=== PATIENT | female | born 1945 | race Caucasian/White ===

== ENCOUNTER → 2016-07-27 | Outpatient (CLI) | payer MEDICARE ==
[~2016-07-27] MED LIST: ALBU8.5H3 INH; ASPI-515 PO; ATOR20TA9 PO; CARV12.52 PO; CEPH-368 PO; DOXY100T9 PO; GLIP5TAB10 PO; HYDR25TA6 PO; LEVO50TA PO; LOSA50TA6 PO; METF500T4 PO; SPIR25TA3 PO
== END | disposition home or self-care (01) ==
LOC: CVU 09:13
PROVIDERS: ATTEND Nurse Practitioner Family
DX: I08.3 Combined rheumatic disorders of mitral, aortic and tricuspid valves (principal); I37.1 Nonrheumatic pulmonary valve insufficiency; Z95.0 Presence of cardiac pacemaker; E11.9 Type 2 diabetes mellitus without complications
CPT/HCPCS: 93306

== ENCOUNTER 2020-05-12 10:27 | Outpatient (CLI) | payer MEDICARE ==
[~2020-05-12 10:27] MED LIST changes: -ALBU8.5H3 INH; +ALBU8.5H8 INH; -ASPI-515 PO; +ASPI-963 PO; +ATOR20TA37 PO; -ATOR20TA9 PO; +DOXY-162 PO; -DOXY100T9 PO; +LOSA50TA14 PO; -LOSA50TA6 PO; +METF500T17 PO; -METF500T4 PO; -SPIR25TA3 PO; +SPIR25TA5 PO
== END 2020-05-12 23:59 | disposition home or self-care (01) ==
LOC: CFH 10:27
PROVIDERS: ATTEND Internal Medicine Cardiovascular Disease
DX: I08.3 Combined rheumatic disorders of mitral, aortic and tricuspid valves (principal); I42.9 Cardiomyopathy, unspecified
CPT/HCPCS: 93306

== ENCOUNTER 2020-06-21 10:35 | Day surgery (SDC) | payer MEDICARE ==
[2020-06-21] MEDS ORDERED: SODIUM CHLORIDE 0.9% 1,000 ML IV SCH (11:00)
[2020-06-21] MEDS ORDERED: IRON (11:14)
[2020-06-21] MEDS ORDERED: INSU100I34 SQ (11:16)
[2020-06-21 11:34] LABS: BASOPHILS % (AUTO) 1 % (0-1); EOSINOPHILS % (AUTO) 2 % (1-7); LYMPHOCYTES % (AUTO) 18 % (22-44); MEAN CORPUSCULAR HEMOGLOBIN 29.8 pg (27.0-34.8); MEAN CORPUSCULAR HGB CONC 33.4 g/dL (32.4-35.8); MEAN PLATELET VOLUME 7.6 fL (7.4-10.4); MONOCYTES % (AUTO) 8 % (2-9); NEUTROPHILS % (AUTO) 71 % (42-75); PLATELET COUNT 140 x10^3/uL (130-400); RED BLOOD COUNT 3.24 x10^6/uL (3.82-5.3); RED CELL DISTRIBUTION WIDTH 13.7 % (9.6-15.2)
[2020-06-21 11:40] LABS: MD NO
[2020-06-21 11:44] LABS: CALCIUM 9.1 mg/dL (8.5-10.1); CHLORIDE 113 mmol/L (98-107); CREATININE 1.88 mg/dL (0.55-1.02)
[2020-06-21] MEDS ORDERED: CEFAZOLIN PMX 1GM/50ML 50 ML ONE ×2 (11:44→13:20)
[2020-06-21] MEDS ORDERED: MIDAZOLAM 1 MG/ML, 5ML ONE (11:44)
[2020-06-21] MEDS ORDERED: LIDOCAINE 1%, 20ML ONE ×2 (11:44→13:32)
[2020-06-21] MEDS ORDERED: FENTANYL PF 100 MCG/2ML ONE (11:44)
[2020-06-21] MEDS ORDERED: CEFAZOLIN 1,000 MG ONE (11:44)
[2020-06-21 11:57] LABS: ANION GAP 7 mmol/L (5-15)
[2020-06-21] MEDS ORDERED: PLEASE ENTER HEIGHT AND WEIGHT MC SCH (12:00)
== END 2020-06-21 15:41 | disposition home or self-care (01) ==
LOC: CACL 10:35
PROVIDERS: ATTEND Internal Medicine Clinical Cardiac Electrophysiology
DX: Z45.02 Encounter for adjustment and management of automatic implantable cardiac defibrillator (principal); E11.22 Type 2 diabetes mellitus with diabetic chronic kidney disease; E11.65 Type 2 diabetes mellitus with hyperglycemia; I12.9 Hypertensive chronic kidney disease with stage 1 through stage 4 chronic kidney disease, or unspecified chronic kidney disease; N18.4 Chronic kidney disease, stage 4 (severe); I44.7 Left bundle-branch block, unspecified; E78.5 Hyperlipidemia, unspecified; E03.9 Hypothyroidism, unspecified; J45.909 Unspecified asthma, uncomplicated; Z79.82 Long term (current) use of aspirin; Z79.84 Long term (current) use of oral hypoglycemic drugs; Z79.899 Other long term (current) drug therapy; Z87.891 Personal history of nicotine dependence
CPT/HCPCS: 33264; 71046; 80048; 82962; 85025; 93005; 99156; 99157; C1882; J0690; J2250; J3010